=== PATIENT | male | born 1950 | race Caucasian/White ===

== ENCOUNTER → 2016-08-25 | Outpatient (CLI) | payer BC ==
[~2016-08-25] MED LIST: ASPI1TAB PO; LISI40TAB PO; METO25TAB PO; SIMV40TA2 PO; SYNT50TA PO; chlorthalidone PO
[2016-08-25 09:39] LABS: BASO % 0.4 % (0.0-1.0); EOS # 0.2 K/mm3 (0.0-0.50); EOS % 1.7 % (0.0-3.0); LARGE UNSTAINED CELL # 0.1 K/mm3 (0.0-0.4); LARGE UNSTAINED CELL % 1.5 % (0.0-4.0); LYMPH % 32.9 % (24.0-44.0); MEAN CORPUSCULAR HEMOGLOBIN 30.6 pg (27.0-33.0); MEAN CORPUSCULAR HGB CONC 34.3 g/dl (32.0-36.5); MEAN CORPUSCULAR VOLUME 89.3 fl (80.0-96.0); MONO # 0.5 K/mm3 (0.0-0.8); MONO % 5.4 % (0.0-5.0); NEUTROPHILS # 5.1 K/mm3 (1.8-7.7); PLATELET COUNT, AUTOMATED 129 k/mm3 (150-450); RED CELL DISTRIBUTION WIDTH 13.4 % (11.5-14.5); WHITE BLOOD COUNT 8.8 K/mm3 (4.0-10.0)
[2016-08-25 09:53] LABS: ALBUMIN 3.8 GM/DL (3.2-5.2); ALBUMIN/GLOBULIN RATIO 1.36 (1.00-1.93); ALKALINE PHOSPHATASE 63 U/L (45-117); ALT/SGPT 33 U/L (12-78); ANION GAP 8 MEQ/L (8-16); AST/SGOT 23 U/L (15-37); BILIRUBIN,TOTAL 0.5 MG/DL (0.2-1.0); BLOOD UREA NITROGEN 17 MG/DL (7-18); CALCIUM LEVEL 8.6 MG/DL (8.8-10.2); CARBON DIOXIDE LEVEL 28 MEQ/L (21-32); CHLORIDE LEVEL 105 MEQ/L (98-107); CHOLESTEROL LEVEL 153 MG/DL (<200); CREATININE FOR GFR 0.94 MG/DL (0.70-1.30); FREE T4 0.96 NG/DL (0.76-1.46); GLOMERULAR FILTRATION RATE > 60.0 (>49); GLUCOSE, FASTING 117 MG/DL (80-110); SODIUM LEVEL 141 MEQ/L (136-145); TOTAL PROTEIN 6.6 GM/DL (6.4-8.2); TRIGLYCERIDES LEVEL 272 MG/DL (<150)
== END ==
LOC: M WUC 08:03
PROVIDERS: ATTEND Family Medicine
DX: E03.8 Other specified hypothyroidism (principal); I10 Essential (primary) hypertension; E11.9 Type 2 diabetes mellitus without complications; E78.5 Hyperlipidemia, unspecified

== ENCOUNTER → 2016-11-25 | Outpatient (CLI) | payer BC ==
[2016-11-25 12:45] LABS: ANION GAP 10 MEQ/L (8-16); BLOOD UREA NITROGEN 14 MG/DL (7-18); CALCIUM LEVEL 8.9 MG/DL (8.8-10.2); CARBON DIOXIDE LEVEL 25 MEQ/L (21-32); CHLORIDE LEVEL 106 MEQ/L (98-107); CREATININE FOR GFR 0.97 MG/DL (0.70-1.30); GLOMERULAR FILTRATION RATE > 60.0 (>49); GLUCOSE, FASTING 122 MG/DL (80-110); POTASSIUM SERUM 4.2 MEQ/L (3.5-5.1); SODIUM LEVEL 141 MEQ/L (136-145)
== END ==
LOC: M WUC 08:32
PROVIDERS: ATTEND Physician Assistant
DX: E11.9 Type 2 diabetes mellitus without complications (principal)

== ENCOUNTER → 2017-03-01 | Outpatient (CLI) | payer BC ==
[2017-03-01 13:40] LABS: BASO % 0.4 % (0.0-1.0); EOS # 0.2 10^3/uL (0.0-0.50); EOS % 1.8 % (0.0-3.0); IMMATURE GRANULOCYTE % 0.2 % (0-0); LYMPH # 2.2 10^3/uL (1.5-4.5); LYMPH % 27.2 % (24.0-44.0); MEAN CORPUSCULAR HEMOGLOBIN 30.6 pg (27.0-33.0); MEAN CORPUSCULAR HGB CONC 34.3 g/dl (32.0-36.5); MEAN CORPUSCULAR VOLUME 89.1 fl (80.0-96.0); MONO # 0.6 10^3/uL (0.0-0.8); MONO % 7.9 % (0.0-5.0); NEUTROPHILS # 5.1 10^3/uL (1.8-7.7); NEUTROPHILS % 62.5 % (36.0-66.0); PLATELET COUNT, AUTOMATED 122 10^3/uL (150-450); RED CELL DISTRIBUTION WIDTH 12.8 % (11.5-14.5); WHITE BLOOD COUNT 8.1 10^3/uL (4.0-10.0)
[2017-03-01 13:55] LABS: ALBUMIN 3.7 GM/DL (3.2-5.2); ALBUMIN/GLOBULIN RATIO 1.16 (1.00-1.93); ALKALINE PHOSPHATASE 70 U/L (45-117); ALT/SGPT 35 U/L (12-78); ANION GAP 7 MEQ/L (8-16); AST/SGOT 27 U/L (15-37); BILIRUBIN,TOTAL 0.6 MG/DL (0.2-1.0); BLOOD UREA NITROGEN 12 MG/DL (7-18); CALCIUM LEVEL 8.7 MG/DL (8.8-10.2); CARBON DIOXIDE LEVEL 29 MEQ/L (21-32); CHLORIDE LEVEL 104 MEQ/L (98-107); CHOLESTEROL LEVEL 146 MG/DL (<200); CREATININE FOR GFR 0.89 MG/DL (0.70-1.30); FREE T4 0.86 NG/DL (0.76-1.46); GLOMERULAR FILTRATION RATE > 60.0 (>49); GLUCOSE, FASTING 117 MG/DL (80-110); POTASSIUM SERUM 3.8 MEQ/L (3.5-5.1); SODIUM LEVEL 140 MEQ/L (136-145); TOTAL PROTEIN 6.9 GM/DL (6.4-8.2); TRIGLYCERIDES LEVEL 276 MG/DL (<150)
== END ==
LOC: M SMT 09:12
PROVIDERS: ATTEND Family Medicine
DX: E11.9 Type 2 diabetes mellitus without complications (principal); E78.5 Hyperlipidemia, unspecified; E03.8 Other specified hypothyroidism

== ENCOUNTER → 2017-06-26 | Outpatient (CLI) | payer BC ==
[2017-06-26 09:53] LABS: ANION GAP 6 MEQ/L (8-16); BLOOD UREA NITROGEN 13 MG/DL (7-18); CALCIUM LEVEL 8.5 MG/DL (8.8-10.2); CARBON DIOXIDE LEVEL 27 MEQ/L (21-32); CHLORIDE LEVEL 107 MEQ/L (98-107); CREATININE FOR GFR 0.81 MG/DL (0.70-1.30); GLOMERULAR FILTRATION RATE > 60.0 (>49); GLUCOSE, FASTING 118 MG/DL (70-100); POTASSIUM SERUM 4.1 MEQ/L (3.5-5.1); SODIUM LEVEL 140 MEQ/L (136-145)
[2017-06-26 10:59] LABS: ESTIMATED AVERAGE GLUCOSE 137 MG/DL (60-110); HEMOGLOBIN A1c 6.4 %
== END ==
LOC: M WUC 08:21
DX: E11.9 Type 2 diabetes mellitus without complications (principal)
CPT/HCPCS: 83036

== ENCOUNTER → 2017-07-03 | Outpatient (CLI) | payer BC | LOC: M WUC 11:54 | DX: R05 Cough (principal) | CPT/HCPCS: 71046 ==

== ENCOUNTER → 2017-12-06 | Outpatient (CLI) | payer BC ==
[2017-12-06 14:12] LABS: ALBUMIN 3.8 GM/DL (3.2-5.2); ALBUMIN/GLOBULIN RATIO 1.19 (1.00-1.93); ALKALINE PHOSPHATASE 62 U/L (45-117); ALT/SGPT 36 U/L (12-78); ANION GAP 8 MEQ/L (8-16); AST/SGOT 26 U/L (7-37); BILIRUBIN,TOTAL 0.4 MG/DL (0.2-1.0); BLOOD UREA NITROGEN 20 MG/DL (7-18); CALCIUM LEVEL 8.8 MG/DL (8.8-10.2); CARBON DIOXIDE LEVEL 26 MEQ/L (21-32); CHLORIDE LEVEL 107 MEQ/L (98-107); CHOLESTEROL LEVEL 141 MG/DL (<200); CHOLESTEROL RISK RATIO 4.862 (<5); CREATININE FOR GFR 0.98 MG/DL (0.70-1.30); FREE T4 0.94 NG/DL (0.76-1.46); GLOMERULAR FILTRATION RATE > 60.0 (>49); GLUCOSE, FASTING 117 MG/DL (70-100); HDL CHOLESTEROL 29 MG/DL (>40); LDL CHOLESTEROL 51.8 MG/DL (<100); NON-HDL-C 112 MG/DL; POTASSIUM SERUM 3.7 MEQ/L (3.5-5.1); SODIUM LEVEL 141 MEQ/L (136-145); TRIGLYCERIDES LEVEL 301 MG/DL (<150)
[2017-12-06 14:15] LABS: ESTIMATED AVERAGE GLUCOSE 146 MG/DL (60-110); HEMOGLOBIN A1c 6.7 %
[2017-12-06 14:28] LABS: MALB URINE SIEMENS 12.1 MG/L; MAU/CREAT RATIO 5.2 MCG/MG (0.0-30.0)
== END ==
LOC: M WUC 09:33
DX: E03.8 Other specified hypothyroidism (principal); E11.40 Type 2 diabetes mellitus with diabetic neuropathy, unspecified; E78.5 Hyperlipidemia, unspecified; I10 Essential (primary) hypertension
CPT/HCPCS: 84443

== ENCOUNTER → 2018-04-19 | Outpatient (CLI) | payer BC ==
[2018-04-19 14:25] LABS: ALBUMIN 4.1 GM/DL (3.2-5.2); ALBUMIN/GLOBULIN RATIO 1.37 (1.00-1.93); ALKALINE PHOSPHATASE 60 U/L (45-117); ALT/SGPT 35 U/L (12-78); ANION GAP 8 MEQ/L (8-16); AST/SGOT 23 U/L (7-37); BILIRUBIN,TOTAL 0.4 MG/DL (0.2-1.0); BLOOD UREA NITROGEN 18 MG/DL (7-18); CARBON DIOXIDE LEVEL 29 MEQ/L (21-32); CHLORIDE LEVEL 103 MEQ/L (98-107); CHOLESTEROL LEVEL 151 MG/DL (<200); CHOLESTEROL RISK RATIO 5.033 (<5); CREATININE FOR GFR 1.02 MG/DL (0.70-1.30); FREE T4 0.95 NG/DL (0.76-1.46); GLOMERULAR FILTRATION RATE > 60.0 (>49); GLUCOSE, FASTING 114 MG/DL (70-100); HDL CHOLESTEROL 30 MG/DL (>40); LDL CHOLESTEROL 72 MG/DL (<100); NON-HDL-C 121 MG/DL; SODIUM LEVEL 140 MEQ/L (136-145); TOTAL PROTEIN 7.1 GM/DL (6.4-8.2); TRIGLYCERIDES LEVEL 247 MG/DL (<150)
[2018-04-19 15:26] LABS: ESTIMATED AVERAGE GLUCOSE 137 MG/DL (60-110); HEMOGLOBIN A1c 6.4 %
[2018-04-19 15:29] LABS: MALB URINE SIEMENS 13.7 MG/L; MAU/CREAT RATIO 6.4 MCG/MG (0.0-30.0)
== END ==
LOC: M WUC 08:55
DX: E03.8 Other specified hypothyroidism (principal); E11.40 Type 2 diabetes mellitus with diabetic neuropathy, unspecified; E78.5 Hyperlipidemia, unspecified; I10 Essential (primary) hypertension
CPT/HCPCS: 84443

== ENCOUNTER → 2018-07-21 | Outpatient (CLI) | payer BC ==
[2018-07-21 18:09] LABS: ALBUMIN 3.9 GM/DL (3.2-5.2); ALT/SGPT 39 U/L (12-78); BILIRUBIN,TOTAL 0.6 MG/DL (0.2-1.0); BLOOD UREA NITROGEN 19 MG/DL (7-18); CALCIUM LEVEL 8.5 MG/DL (8.8-10.2); CARBON DIOXIDE LEVEL 26 MEQ/L (21-32); CHLORIDE LEVEL 104 MEQ/L (98-107); CREATININE FOR GFR 1.05 MG/DL (0.70-1.30); GLOMERULAR FILTRATION RATE > 60.0 (>49); GLUCOSE, FASTING 127 MG/DL (70-100); POTASSIUM SERUM 3.7 MEQ/L (3.5-5.1); SODIUM LEVEL 140 MEQ/L (136-145); TOTAL PROTEIN 6.9 GM/DL (6.4-8.2)
[2018-07-21 18:38] LABS: HEMOGLOBIN A1c 6.8 %
== END ==
LOC: M WUC 09:20
PROVIDERS: ATTEND Physician Assistant
DX: R73.01 Impaired fasting glucose (principal)

== ENCOUNTER → 2018-10-18 | Outpatient (CLI) | payer BC ==
[~2018-10-18] MED LIST changes: -ASPI1TAB PO; +ASPI81TA26 PO; +LISI40TA52 PO; -LISI40TAB PO; +METO1TAB63 PO; -METO25TAB PO
[2018-10-18 10:23] LABS: BASO # 0.1 10^3/uL (0.0-0.2); BASO % 0.7 % (0.0-1.0); EOS # 0.3 10^3/uL (0.0-0.50); HEMATOCRIT 42.3 % (42.0-52.0); HEMOGLOBIN 13.9 g/dl (13.5-17.5); LYMPH # 2.1 10^3/uL (1.5-4.5); LYMPH % 28.2 % (24.0-44.0); MEAN CORPUSCULAR HEMOGLOBIN 29.9 pg (27.0-33.0); MEAN CORPUSCULAR HGB CONC 32.9 g/dl (32.0-36.5); MONO # 0.7 10^3/uL (0.0-0.8); MONO % 8.8 % (0.0-5.0); NEUTROPHILS # 4.3 10^3/uL (1.8-7.7); PLATELET COUNT, AUTOMATED 131 10^3/uL (150-450); RED BLOOD COUNT 4.65 10^6/uL (4.30-6.10); WHITE BLOOD COUNT 7.4 10^3/uL (4.0-10.0)
[2018-10-18 10:37] LABS: HEMOGLOBIN A1c 6.3 %
[2018-10-18 10:57] LABS: ALT/SGPT 32 U/L (12-78); BILIRUBIN,TOTAL 0.4 MG/DL (0.2-1.0); BLOOD UREA NITROGEN 17 MG/DL (7-18); CALCIUM LEVEL 9.1 MG/DL (8.8-10.2); CARBON DIOXIDE LEVEL 29 MEQ/L (21-32); CHLORIDE LEVEL 107 MEQ/L (98-107); CHOLESTEROL LEVEL 142 MG/DL (<200); CHOLESTEROL RISK RATIO 4.733 (<5); CREATININE FOR GFR 0.93 MG/DL (0.70-1.30); FREE T4 0.96 NG/DL (0.76-1.46); GLOMERULAR FILTRATION RATE > 60.0 (>49); GLUCOSE, FASTING 113 MG/DL (70-100); HDL CHOLESTEROL 30 MG/DL (>40); LDL CHOLESTEROL 69 MG/DL (<100); NON-HDL-C 112 MG/DL; POTASSIUM SERUM 4.1 MEQ/L (3.5-5.1); SODIUM LEVEL 143 MEQ/L (136-145); TRIGLYCERIDES LEVEL 214 MG/DL (<150)
[2018-10-18 11:01] LABS: TOTAL 25(OH) VITAMIN D 24.1 NG/ML (30.0-100.0)
[2018-10-18 11:05] LABS: MAU/CREAT RATIO 7.6 MCG/MG (0.0-30.0)
== END ==
LOC: M WUC 08:14
PROVIDERS: ATTEND Family Medicine
DX: Z12.5 Encounter for screening for malignant neoplasm of prostate (principal); E78.5 Hyperlipidemia, unspecified; E11.40 Type 2 diabetes mellitus with diabetic neuropathy, unspecified; E03.8 Other specified hypothyroidism
CPT/HCPCS: 36415; 80053; 80061; 82043; 82306; 83036; 84439; 84443; 85025; G0103

== ENCOUNTER → 2019-01-25 | Outpatient (CLI) | payer BC ==
[2019-01-25 10:19] LABS: BLOOD UREA NITROGEN 20 MG/DL (7-18); CALCIUM LEVEL 9.4 MG/DL (8.8-10.2); CARBON DIOXIDE LEVEL 29 MEQ/L (21-32); CHLORIDE LEVEL 105 MEQ/L (98-107); GLOMERULAR FILTRATION RATE > 60.0 (>49); GLUCOSE, FASTING 105 MG/DL (70-100); POTASSIUM SERUM 4.2 MEQ/L (3.5-5.1); SODIUM LEVEL 140 MEQ/L (136-145)
[2019-01-25 10:28] LABS: HEMOGLOBIN A1c 6.4 %
== END ==
LOC: M WUC 08:08
PROVIDERS: ATTEND Physician Assistant
DX: E11.40 Type 2 diabetes mellitus with diabetic neuropathy, unspecified (principal)

== ENCOUNTER → 2019-04-25 | Outpatient (CLI) | payer BC ==
[~2019-04-25] MED LIST changes: -SIMV40TA2 PO; +SIMV40TA20 PO
[2019-04-25 10:29] LABS: BASO % 0.3 % (0.0-1.0); EOS # 0.4 10^3/uL (0.0-0.5); EOS % 5.1 % (0.0-3.0); HEMATOCRIT 43.9 % (42.0-52.0); HEMOGLOBIN 14.2 g/dl (13.5-17.5); LYMPH # 2.2 10^3/uL (1.5-5.0); MEAN CORPUSCULAR HEMOGLOBIN 29.8 pg (27.0-33.0); MEAN CORPUSCULAR HGB CONC 32.3 g/dl (32.0-36.5); MEAN CORPUSCULAR VOLUME 92.2 fl (80.0-96.0); MONO # 0.7 10^3/uL (0.0-0.8); MONO % 8.6 % (0.0-5.0); NEUTROPHILS # 5.3 10^3/uL (1.5-8.5); NEUTROPHILS % 60.7 % (36.0-66.0); PLATELET COUNT, AUTOMATED 127 10^3/uL (150-450); RED BLOOD COUNT 4.76 10^6/uL (4.30-6.10); WHITE BLOOD COUNT 8.7 10^3/uL (4.0-10.0)
[2019-04-25 10:59] LABS: HEMOGLOBIN A1c 6.5 %
[2019-04-25 11:05] LABS: CHOLESTEROL RISK RATIO 4.484 (<5); FREE T4 0.95 NG/DL (0.76-1.46); THYROID STIMULATING HORMONE 2.17 uIU/ML (0.358-3.740)
== END ==
LOC: M WUC 08:06
PROVIDERS: ATTEND Family Medicine
DX: E11.40 Type 2 diabetes mellitus with diabetic neuropathy, unspecified (principal); E78.5 Hyperlipidemia, unspecified

== ENCOUNTER → 2019-07-25 | Outpatient (CLI) | payer BC ==
[2019-07-25 11:25] LABS: ALBUMIN 3.8 GM/DL (3.2-5.2); ALT/SGPT 29 U/L (12-78); BILIRUBIN,TOTAL 0.3 MG/DL (0.2-1.0); BLOOD UREA NITROGEN 18 MG/DL (7-18); CALCIUM LEVEL 8.9 MG/DL (8.8-10.2); CARBON DIOXIDE LEVEL 31 MEQ/L (21-32); CHLORIDE LEVEL 105 MEQ/L (98-107); CREATININE FOR GFR 0.93 MG/DL (0.70-1.30); GLOMERULAR FILTRATION RATE > 60.0 (>49); GLUCOSE, FASTING 117 MG/DL (70-100); POTASSIUM SERUM 4.3 MEQ/L (3.5-5.1); SODIUM LEVEL 141 MEQ/L (136-145); TOTAL PROTEIN 7.1 GM/DL (6.4-8.2)
[2019-07-25 11:52] LABS: HEMOGLOBIN A1c 6.6 %
== END ==
LOC: M WUC 08:11
PROVIDERS: ATTEND Physician Assistant
DX: E11.40 Type 2 diabetes mellitus with diabetic neuropathy, unspecified (principal)

== ENCOUNTER → 2019-08-05 | Outpatient (CLI) | payer BC ==
--- NOTE | 2019-08-05 11:38 | REP ---
Chest x-ray: Two views. History: Cough. Comparison chest x-ray: July 03, 2017. Findings: The lungs are symmetrically aerated and clear. Pleural angles are sharp. Heart is not enlarged. There are degenerative disc changes in the thoracic spine. A bipolar pacemaker is seen in the right heart via the left side. Pulmonary vasculature is not increased. Impression: Pacemaker in place. Otherwise no acute disease. Electronically Signed by Brent Bautista MD 08/05/2019 11:29 A
== END ==
LOC: M WUC 10:40
PROVIDERS: ATTEND Family Medicine
DX: Z95.0 Presence of cardiac pacemaker (principal); R05 Cough

== ENCOUNTER → 2019-09-19 | Outpatient (CLI) | payer BC | LOC: M LABSMTC 12:57 | PROVIDERS: ATTEND Family Medicine | DX: Z11.59 Encounter for screening for other viral diseases (principal); Z20.828 Contact with and (suspected) exposure to other viral communicable diseases ==

== ENCOUNTER → 2019-11-05 | Outpatient (CLI) | payer BC ==
[2019-11-05 14:23] LABS: ALBUMIN 3.4 GM/DL (3.2-5.2); ALT/SGPT 21 U/L (12-78); BILIRUBIN,TOTAL 0.4 MG/DL (0.2-1.0); BLOOD UREA NITROGEN 13 MG/DL (7-18); CARBON DIOXIDE LEVEL 27 MEQ/L (21-32); CHLORIDE LEVEL 104 MEQ/L (98-107); CHOLESTEROL LEVEL 149 MG/DL (<200); CHOLESTEROL RISK RATIO 4.515 (<5); FREE T4 1.15 NG/DL (0.76-1.46); GLOMERULAR FILTRATION RATE > 60.0 (>49); GLUCOSE, FASTING 109 MG/DL (70-100); HDL CHOLESTEROL 33 MG/DL (>40); LDL CHOLESTEROL 86 MG/DL (<100); NON-HDL-C 116 MG/DL; POTASSIUM SERUM 4.2 MEQ/L (3.5-5.1); SODIUM LEVEL 138 MEQ/L (136-145); TRIGLYCERIDES LEVEL 151 MG/DL (<150)
[2019-11-05 14:58] LABS: HEMOGLOBIN A1c 6.6 %
[2019-11-07 01:11] LABS: PSA TOTAL 2.1 ng/mL (0.0-4.0)
== END ==
LOC: M WUC 09:35
PROVIDERS: ATTEND Family Medicine
DX: E11.40 Type 2 diabetes mellitus with diabetic neuropathy, unspecified (principal); E78.5 Hyperlipidemia, unspecified; E03.8 Other specified hypothyroidism; Z12.5 Encounter for screening for malignant neoplasm of prostate

== ENCOUNTER → 2019-11-19 | Outpatient (CLI) | payer BC ==
[~2019-11-19] MED LIST changes: +ALPR0.5T3 PO; +CHLO125TA PO; +LISI40TA PO; +MAPA500C PO; +METO25TA4 PO; +NITR0.4S14 SL; +SYNT75TA PO
--- NOTE | 2019-11-19 14:38 | PFTRPT ---
Height: 70.00 Inches Weight: 230.00 Lbs BSA: 2.22 Diagnosis: R91.8 DATE OF PROCEDURE: 11/19/2019 ORDERED BY: Justin Shearer MD Spirometry: Pre and post bronchodilator study of excellent technical quality. Forced vital capacity normal. FEV1 in proportion. Obstructive index is, therefore, normal. Flow Volume Loop: Expiratory limb of the flow volume loop is normal. No significant bronchodilator response identified. Lung Volumes: Total lung capacity normal. Residual volume is in proportion. Diffusing Capacity: Diffusing capacity, although mildly reduced, is appropriate for alveolar volume. Hemoglobin: Hemoglobin acceptable at 13. Airway Mechanics: Airway resistance and conductance are normal. IMPRESSION: Minimal reduction in the absolute diffusing capacity. Please correlate clinically. MTDD
== END ==
LOC: M CARPUL 13:49
PROVIDERS: ATTEND Internal Medicine Pulmonary Disease
DX: R91.8 Other nonspecific abnormal finding of lung field (principal)

== ENCOUNTER → 2019-11-24 | Outpatient (CLI) | payer BC | LOC: M LABSMTC 11:11 | PROVIDERS: ATTEND Anesthesiology | DX: Z03.818 Encounter for observation for suspected exposure to other biological agents ruled out (principal) | CPT/HCPCS: C9803; U0003 ==

== ENCOUNTER 2019-11-27 11:55 | Day surgery (SDC) | payer BC ==
[~2019-11-27] VITALS: Ht 180.3 cm; Wt 103.0 kg
[~2019-11-27 11:55] MED LIST changes: -ALPR0.5T3 PO; -CHLO125TA PO; -MAPA500C PO; -NITR0.4S14 SL; +NS 1,000 ML IV ONE
[2019-11-27] MEDS ORDERED: LIDOCAINE 2% 100MG/5ML SDV (FOR ANES.) As Ordered ONE (14:19)
[2019-11-27] MEDS ORDERED: propofoL 500 MG/50 ML VIAL As Ordered ONE (14:19)
--- NOTE | 2019-11-27 15:02 | ROOR ---
Patient Name: Lauro Pino Procedure Date: 11/27/2019 1:28 PM Date of : 1950 Age: 69 Room: [facility] Gender: Male Note Status: Finalized Procedure: Colonoscopy Indications: Abnormal CT of the GI tract, Change in bowel habits, Change in stool caliber Providers: Augusto Madden MD Referring MD: Blanka KING DO Requesting Provider: Medicines: Monitored Anesthesia Care Complications: No immediate complications. Procedure: Pre-Anesthesia Assessment: - Prior to the procedure, a History and Physical was performed, and patient medications and allergies were reviewed. The patient is competent. The risks and benefits of the procedure and the sedation options and risks were discussed with the patient. All questions were answered and informed consent was obtained. Patient identification and proposed procedure were verified by the physician and the nurse in the endoscopy suite. Mental Status Examination: alert and oriented. Airway Examination: normal oropharyngeal airway and neck mobility. Respiratory Examination: clear to auscultation. CV Examination: normal. Prophylactic Antibiotics: The patient does not require prophylactic antibiotics. Prior Anticoagulants: The patient has taken no previous anticoagulant or antiplatelet agents except for aspirin. ASA Grade Assessment: III - A patient with severe systemic disease. After reviewing the risks and benefits, the patient was deemed in satisfactory condition to undergo the procedure. The anesthesia plan was to use monitored anesthesia care (MAC). Immediately prior to administration of medications, the patient was re-assessed for adequacy to receive sedatives. The heart rate, respiratory rate, oxygen saturations, blood pressure, adequacy of pulmonary ventilation, and response to care were monitored throughout the procedure. The physical status of the patient was re-assessed after the procedure. The Colonoscope was introduced through the anus and advanced to the cecum, identified by appendiceal orifice and ileocecal valve. The patient tolerated the procedure. The colonoscopy was somewhat difficult due to multiple diverticula in the colon and a partially obstructing mass. The patient tolerated the procedure well. The quality of the bowel preparation was adequate. Findings: Hemorrhoids were found on perianal exam. Multiple small and large-mouthed diverticula were found in the sigmoid colon, descending colon, transverse colon, hepatic flexure and ascending colon. There was narrowing of the colon in association with the diverticular opening. Leeann-diverticular erythema was seen. There was evidence of an impacted diverticulum. A fungating and infiltrative partially obstructing large mass was found in the recto-sigmoid colon. The mass was partially circumferential (involving two-thirds of the lumen circumference). The mass measured four cm in length. No bleeding was present. This was biopsied with a cold forceps for histology. Area was successfully injected with 4 mL Natalya ink for tattooing. No additional abnormalities were found on retroflexion. Impression: - Hemorrhoids found on perianal exam. - Severe diverticulosis in the sigmoid colon, in the descending colon, in the transverse colon, at the hepatic flexure and in the ascending colon. There was narrowing of the colon in association with the diverticular opening. Leeann-diverticular erythema was seen. There was evidence of an impacted diverticulum. - Likely malignant partially obstructing tumor in the recto-sigmoid colon. Biopsied. Injected. Recommendation: - Discharge patient to home (ambulatory). - Return to my office in 1 week. Augusto Madden MD Augusto Madden MD 11/27/2019 3:02:09 PM Electronically signed by Augusto Madden MD Number of Addenda: 0 Note Initiated On: 11/27/2019 1:28 PM Estimated Blood Loss: Estimated blood loss was minimal.
[2019-11-27 15:30] VITALS: BP 178/91
[2019-12-04] MEDS ORDERED: ALPR0.5T3 PO (14:23)
[2019-12-04] MEDS ORDERED: CHLO125TA PO (14:23)
[2019-12-04] MEDS ORDERED: NITR0.4S14 SL (14:35)
[2019-12-04] MEDS ORDERED: MAPA500C PO (14:35)
[2020-01-15] MEDS ORDERED: PROC10TA4 PO (11:41)
[2020-01-22] MEDS ORDERED: ZOFR8TAB24 PO (08:44)
== END 2019-11-27 15:40 | disposition home or self-care (01) ==
LOC: M OPP 11:55
PROVIDERS: ATTEND Surgery
DX: K56.690 Other partial intestinal obstruction (principal); C18.7 Malignant neoplasm of sigmoid colon; K64.9 Unspecified hemorrhoids; R19.4 Change in bowel habit; R19.5 Other fecal abnormalities; K57.30 Diverticulosis of large intestine without perforation or abscess without bleeding; I10 Essential (primary) hypertension; R93.3 Abnormal findings on diagnostic imaging of other parts of digestive tract; E11.9 Type 2 diabetes mellitus without complications; Z79.82 Long term (current) use of aspirin; Z79.899 Other long term (current) drug therapy; Z95.5 Presence of coronary angioplasty implant and graft; Z95.0 Presence of cardiac pacemaker

== ENCOUNTER → 2019-11-28 | Outpatient (CLI) | payer BC ==
[~2019-11-28] MED LIST changes: +ALPR0.5T3 PO; +CHLO125TA PO; +MAPA500C PO; +NITR0.4S14 SL; -NS 1,000 ML IV ONE; +PROC10TA4 PO; +ZOFR8TAB24 PO
[2019-11-28 17:06] LABS: PLATELET COUNT, AUTOMATED 171 10^3/uL (150-450)
[2019-11-28 17:20] LABS: INR 1.02; PROTHROMBIN TIME 13.1 SECONDS (11.8-14.0)
[2019-11-28 17:21] LABS: PARTIAL THROMBOPLASTIN TIME 36.5 SECONDS (25.0-38.4)
== END ==
LOC: M WUC 12:28
PROVIDERS: ATTEND Internal Medicine Pulmonary Disease
DX: R91.1 Solitary pulmonary nodule (principal)

== ENCOUNTER → 2019-12-05 | Outpatient (REF) | payer BC ==
[2019-12-05 16:42] LABS: BASO # 0.1 10^3/uL (0.0-0.2); BASO % 0.4 % (0.0-1.0); EOS # 0.4 10^3/uL (0.0-0.5); EOS % 3.3 % (0.0-3.0); HEMATOCRIT 37.4 % (42.0-52.0); HEMOGLOBIN 11.8 g/dl (13.5-17.5); LYMPH # 1.7 10^3/uL (1.5-5.0); MEAN CORPUSCULAR HEMOGLOBIN 28.4 pg (27.0-33.0); MEAN CORPUSCULAR HGB CONC 31.6 g/dl (32.0-36.5); MEAN CORPUSCULAR VOLUME 90.1 fl (80.0-96.0); MONO % 8.6 % (0.0-5.0); NEUTROPHILS # 8.1 10^3/uL (1.5-8.5); NEUTROPHILS % 72.2 % (36.0-66.0); PLATELET COUNT, AUTOMATED 185 10^3/uL (150-450); RED BLOOD COUNT 4.15 10^6/uL (4.30-6.10); WHITE BLOOD COUNT 11.2 10^3/uL (4.0-10.0)
[2019-12-05 17:01] LABS: ALBUMIN 3.5 GM/DL (3.2-5.2); ALT/SGPT 20 U/L (12-78); BILIRUBIN,TOTAL 0.3 MG/DL (0.2-1.0); BLOOD UREA NITROGEN 13 MG/DL (7-18); CALCIUM LEVEL 8.8 MG/DL (8.8-10.2); CARBON DIOXIDE LEVEL 30 MEQ/L (21-32); CHLORIDE LEVEL 104 MEQ/L (98-107); CREATININE FOR GFR 0.87 MG/DL (0.70-1.30); GLOMERULAR FILTRATION RATE > 60.0 (>49); GLUCOSE, FASTING 131 MG/DL (70-100); SODIUM LEVEL 139 MEQ/L (136-145)
== END ==
LOC: M WUC 15:45
PROVIDERS: ATTEND Physician Assistant
DX: C18.6 Malignant neoplasm of descending colon (principal)

== ENCOUNTER → 2019-12-07 | Outpatient (CLI) | payer BC | LOC: M LABSMTC 10:28 | PROVIDERS: ATTEND Anesthesiology | DX: Z01.818 Encounter for other preprocedural examination (principal); Z11.59 Encounter for screening for other viral diseases | CPT/HCPCS: C9803; U0003 ==

== ENCOUNTER → 2019-12-09 | Outpatient (CLI) | payer MEDICARE, BC ==
[~2019-12-09] MED LIST changes: +LIDOCAINE 1% MDV 20ML VIAL As Ordered ONE
--- NOTE | 2019-12-09 11:23 | REP ---
CHEST X-RAY: Single view. HISTORY: The patient is immediately status post CT guided needle biopsy for left lower lobe lung nodule. Comparison chest x-ray August 05, 2019. FINDINGS: There is an ill-defined nodular opacity in the left base along the left heart border. There is a small left apical pneumothorax, approximately 5% or less. Followup chest x-ray will be obtained 2 hours. Pacemaker is seen. No other findings. IMPRESSION: Small left apical pneumothorax. Followup chest x-ray will be obtained in 2 hours. Electronically Signed by Brent Bautista MD 12/09/2019 04:17 P
[2019-12-09 13:00] VITALS: BP 155/76
--- NOTE | 2019-12-09 13:33 | REP ---
Chest x-ray: Single PA view. 01:13 p.m. film. History: Reevaluate post biopsy small pneumothorax left-sided. Comparison study 11:18 a.m. film on this same date. Findings: There is a small left apical pneumothorax unchanged in the interval since the 11:18 a.m. film. The patient remains asymptomatic. Lungs are otherwise clear. Pleural angles are sharp. Pacemaker is again noted. Impression: Stable small left apical pneumothorax. The patient will be released. Electronically Signed by Brent Bautista MD 12/09/2019 01:24 P
--- NOTE | 2019-12-09 18:41 | REP ---
CT-guided left lobe lung biopsy The procedure is performed by ARMINDA Conroy, under the direct supervision of Dr. Bautista. The patient has a history of a spiculated 16 x 15 x 14 mm left lower lobe lung mass on a a CT dated 11/21/2019. The risks and benefits of the procedure were explained to the patient and informed consent was obtained both orally and written. Directly prior to the start of the procedure, a formal timeout was done in the exam room. The left lobe lung mass was localized using CT guidance. Skin was prepped and draped in the usual sterile fashion. 6 ml of 1% lidocaine 10 mg/ml was used as a local anesthetic. Using CT guidance a 19/20 gauge coaxial needle biopsy system was inserted and advanced into the nodule. 8 core biopsy samples were obtained and sent to the lab. CT images obtained directly after the biopsy show evidence of a small pneumothorax. This was followed with serial chest x-rays and after the appropriate amount of monitored convalescence the patient was discharged from the department. Reviewed by ARMINDA Juarez 12/09/2019 04:59 P Electronically Signed by Brent Bautista MD 12/09/2019 06:33 P
== END ==
LOC: M IRPRO 10:00
PROVIDERS: ATTEND Internal Medicine Pulmonary Disease
DX: R91.1 Solitary pulmonary nodule (principal)

== ENCOUNTER 2019-12-12 06:14 | Inpatient (IN) | payer MEDICARE, BC ==
[~2019-12-12] VITALS: Ht 177.8 cm; Wt 102.5 kg
[~2019-12-12 06:14] MED LIST changes: +ALVIMOPAN 12 MG CAPSULE (ENTEREG) PO ONE; +HEPARIN SOD (PORCINE) 5000UNITS/ML 1ML VIAL/SYRINGE SQ ONE; -LIDOCAINE 1% MDV 20ML VIAL As Ordered ONE; +LIDOCAINE 1% MDV 20ML VIAL SQ PRN; +LR 1,000 ML IV ONE; -PROC10TA4 PO; -ZOFR8TAB24 PO; +cefoTEtan DISODIUM 2 GM in D5W MINI-BAG PLUS 50 ML IV ONE; +metroNIDAZOLE 500 MG in IV 1 EA IV ONE
[2019-12-12 06:51] VITALS: BP 136/76
[2019-12-12] MEDS ORDERED: LIDOCAINE 1% SDV 30ML VIAL As Ordered ONE (07:10)
[2019-12-12] MEDS ORDERED: BUPIVACAINE HCL 0.25% 30ML VIAL As Ordered ONE (07:10)
[2019-12-12] MEDS ORDERED: propofoL 200 MG/20 ML VIAL As Ordered ONE (07:12)
[2019-12-12] MEDS ORDERED: KETOROLAC 60MG 2ML VIAL As Ordered ONE (07:12)
[2019-12-12] MEDS ORDERED: SUGAMMADEX SODIUM 500 MG/5 ML VIAL (BRIDION) As Ordered ONE (07:12)
[2019-12-12] MEDS ORDERED: BUPIVACAINE LIPOSOME/PF 1.3% 20ML VIAL (13.3MG/ML)(EXPAREL)(C9290 PER1MG) As Ordered ONE (07:12)
[2019-12-12] MEDS ORDERED: dexameTHASONE 4 MG/ML 1ML VIAL (J1100 PER 1MG) As Ordered ONE (07:12)
[2019-12-12] MEDS ORDERED: ROCURONIUM BROMIDE 50 MG/5 ML VIAL As Ordered ONE ×3 (07:12→11:20)
[2019-12-12] MEDS ORDERED: ONDANSETRON 4MG/2ML VIAL As Ordered ONE (07:12)
[2019-12-12] MEDS ORDERED: LIDOCAINE 2% 100MG/5ML SDV (FOR ANES.) As Ordered ONE (07:12)
[2019-12-12] MEDS ORDERED: HYDROmorphone HCL 2 MG/ML 1ML VIAL (J1170) As Ordered ONE (07:12)
[2019-12-12] MEDS ORDERED: ACETAMINOPHEN 1000MG 100ML IV BTL (OFIRMEV) (J0131 PER 10MG) As Ordered ONE (07:12)
[2019-12-12] MEDS ORDERED: fentaNYL 100 MCG/2 ML INJECTION (J3010) As Ordered ONE (07:13)
[2019-12-12] MEDS ORDERED: MIDAZOLAM INJ 2MG/2ML VIAL (J2250 PER 1MG) As Ordered ONE (07:13)
[2019-12-12] MEDS ORDERED: BUPIVACAINE HCL 0.25% 10ML VIAL As Ordered ONE (07:13)
[2019-12-12] MEDS ORDERED: PHENYLephrine HCL 500 MCG/5 ML (100MCG/ML) SYRINGE (J2370) As Ordered ONE (11:52)
[2019-12-13] MEDS ORDERED: IPRATROPIUM 0.5MG/ALBUTEROL 2.5MG INH SOL UD 3ML (DUONEB) ONE (09:00)
[2019-12-14] MEDS ORDERED: PERCOCET 5MG/325MG TAB ONE (04:31)
[2019-12-14] MEDS ORDERED: ACETAMINOPHEN TAB 650MG DOSE (2X325MG) ONE ×3 (04:35→10:08)
[2019-12-14] MEDS ORDERED: ENOXAPARIN 40MG/0.4ML SYRINGE (J1650 PER 10MG) ONE (08:57)
[2019-12-14] MEDS ORDERED: ACETAMINOPHEN TAB 650MG DOSE (2X325MG) As Ordered ONE ×3 (08:57→22:21)
[2019-12-14] MEDS ORDERED: metroNIDAZOLE/NACL 500MG(5MG/ML) 100ML BAG (S0030) ONE (08:57)
[2019-12-14] MEDS ORDERED: lisinopriL 40 MG TAB As Ordered ONE ×2 (08:57→22:08)
[2019-12-14] MEDS ORDERED: metroNIDAZOLE/NACL 500MG(5MG/ML) 100ML BAG (S0030) As Ordered ONE ×2 (08:57→17:58)
[2019-12-14] MEDS ORDERED: APPROPRIATE DILUENT As Ordered ONE ×4 (08:57→22:09)
[2019-12-14] MEDS ORDERED: METOPROLOL TART 25 MG TABLET ONE ×2 (08:57→10:08)
[2019-12-14] MEDS ORDERED: lisinopriL 40 MG TAB ONE (08:57)
[2019-12-14] MEDS ORDERED: ENOXAPARIN 40MG/0.4ML SYRINGE (J1650 PER 10MG) As Ordered ONE (08:58)
[2019-12-14] MEDS ORDERED: METOPROLOL TART 25 MG TABLET As Ordered ONE ×2 (08:58→22:08)
[2019-12-14] MEDS ORDERED: IPRATROPIUM 0.5MG/ALBUTEROL 2.5MG INH SOL UD 3ML (DUONEB) ONE (09:00)
[2019-12-14] MEDS ORDERED: SIMVASTATIN 40 MG TAB ONE (10:08)
[2019-12-14] MEDS ORDERED: CIPROFLOXACIN/D5W 400 MG/200 ML BAG (J0744) ONE (10:08)
[2019-12-14] MEDS ORDERED: CIPROFLOXACIN/D5W 400 MG/200 ML BAG (J0744) As Ordered ONE ×2 (12:01→22:09)
[2019-12-14] MEDS ORDERED: MORPHINE 2 MG/ML 1ML VIAL (J2270) ONE (12:16)
[2019-12-14] MEDS ORDERED: SIMVASTATIN 40 MG TAB As Ordered ONE (22:09)
[2019-12-15] MEDS ORDERED: APPROPRIATE DILUENT As Ordered ONE ×5 (00:06→21:28)
[2019-12-15] MEDS ORDERED: metroNIDAZOLE/NACL 500MG(5MG/ML) 100ML BAG (S0030) As Ordered ONE ×3 (00:06→16:50)
[2019-12-15] MEDS ORDERED: ACETAMINOPHEN TAB 650MG DOSE (2X325MG) As Ordered ONE ×3 (05:21→21:27)
[2019-12-15] MEDS ORDERED: lisinopriL 40 MG TAB As Ordered ONE ×2 (09:50→21:28)
[2019-12-15] MEDS ORDERED: METOPROLOL TART 25 MG TABLET As Ordered ONE ×2 (09:50→21:28)
[2019-12-15] MEDS ORDERED: ENOXAPARIN 40MG/0.4ML SYRINGE (J1650 PER 10MG) As Ordered ONE (09:50)
[2019-12-15] MEDS ORDERED: CIPROFLOXACIN/D5W 400 MG/200 ML BAG (J0744) As Ordered ONE ×2 (11:15→21:28)
[2019-12-15] MEDS ORDERED: SIMVASTATIN 40 MG TAB As Ordered ONE (21:28)
[2019-12-16] MEDS ORDERED: metroNIDAZOLE/NACL 500MG(5MG/ML) 100ML BAG (S0030) As Ordered ONE ×2 (00:48→09:28)
[2019-12-16] MEDS ORDERED: APPROPRIATE DILUENT As Ordered ONE ×2 (00:48→09:28)
[2019-12-16] MEDS ORDERED: lisinopriL 40 MG TAB As Ordered ONE (09:28)
[2019-12-16] MEDS ORDERED: ENOXAPARIN 40MG/0.4ML SYRINGE (J1650 PER 10MG) As Ordered ONE (09:28)
[2019-12-16] MEDS ORDERED: METOPROLOL TART 25 MG TABLET As Ordered ONE (09:28)
[2020-01-15] MEDS ORDERED: PROC10TA4 PO (11:41)
[2020-01-22] MEDS ORDERED: ZOFR8TAB24 PO (08:44)
[2020-01-22 11:32] LABS: HEMATOCRIT 34.5 % (42.0-52.0); HEMOGLOBIN 10.9 g/dl (13.5-17.5); MEAN CORPUSCULAR HEMOGLOBIN 28.2 pg (27.0-33.0); MEAN CORPUSCULAR HGB CONC 31.6 g/dl (32.0-36.5); MEAN CORPUSCULAR VOLUME 89.1 fl (80.0-96.0); PLATELET COUNT, AUTOMATED 177 10^3/uL (150-450); RED BLOOD COUNT 3.87 10^6/uL (4.30-6.10); WHITE BLOOD COUNT 15.9 10^3/uL (4.0-10.0)
[2020-01-22 14:20] LABS: HEMATOCRIT 32.1 % (42.0-52.0); HEMOGLOBIN 10.4 g/dl (13.5-17.5); MEAN CORPUSCULAR HEMOGLOBIN 28.4 pg (27.0-33.0); MEAN CORPUSCULAR HGB CONC 32.4 g/dl (32.0-36.5); MEAN CORPUSCULAR VOLUME 87.7 fl (80.0-96.0); PLATELET COUNT, AUTOMATED 185 10^3/uL (150-450); RED BLOOD COUNT 3.66 10^6/uL (4.30-6.10)
[2020-01-28 11:57] LABS: BLOOD UREA NITROGEN 7 MG/DL (7-18); CALCIUM LEVEL 8.3 MG/DL (8.8-10.2); CARBON DIOXIDE LEVEL 27 mmol/L (20-29); CHLORIDE LEVEL 104 MEQ/L (98-107); CREATININE FOR GFR 0.89 MG/DL (0.70-1.30); GLOMERULAR FILTRATION RATE > 60.0 (>49); GLUCOSE, FASTING 139 MG/DL (70-100); POTASSIUM SERUM 3.2 MEQ/L (3.5-5.1); SODIUM LEVEL 140 MEQ/L (136-145)
[2020-01-28 13:48] LABS: BLOOD UREA NITROGEN 7 MG/DL (7-18); CALCIUM LEVEL 8.1 MG/DL (8.8-10.2); CARBON DIOXIDE LEVEL 29 MEQ/L (21-32); CHLORIDE LEVEL 106 MEQ/L (98-107); CREATININE FOR GFR 0.74 MG/DL (0.70-1.30); GLOMERULAR FILTRATION RATE > 60.0 (>49); GLUCOSE, FASTING 137 MG/DL (70-100); POTASSIUM SERUM 3.2 MEQ/L (3.5-5.1); SODIUM LEVEL 143 MEQ/L (136-145)
--- NOTE | 2020-02-04 12:28 | ROOPDOC ---
[facility] Report Of Operation Report of Operation DATE OF PROCEDURE: 12/12/19 PREPROCEDURE DIAGNOSES: Rectosigmoid Colon Cancer. POSTPROCEDURE DIAGNOSES: Rectosigmoid colon cancer with full thickness perforation. PROCEDURE: Robotic Assisted Laparoscopic Low Anterior Resection., Intraoperative cystoscopy and injection of ICG by Dr. Adame SURGEON: Augusto Madden MD ORDER PROCESSOR: DO Marlene Artis, GLOST TILE SHADER Miss Coughlin assisted me with the initial placement of ports, management of the tower, arms and instruments as well as retraction intra-abdominally while I was at the surgeon's console. Dr. De Leon came in and assisted me with performance of flexible sigmoidoscopy, transanal anastomosis, extraction of specimen and closure of the ports and an incisions ANESTHESIA: General anesthesia with placement of a transversus abdominis plane block using Exparel and Marcaine. ESTIMATED BLOOD LOSS: Approximately 100 mL. COMPLICATIONS: none. REMARKS: Patient is a 69-year-old male complaining of change in his bowel habits, pencil thin stool, found to have a near obstructing mass at the rectosig moid junction on colonoscopy. During his surgery he was noted to have full- thickness perforation of the antimesenteric wall of the colon where the cancer is located in this is adhered to the pelvic sidewall. PROCEDURE NOTE: I asked Dr. Adame to perform an intraoperative cystoscopy and injection of ICG on both ureteral openings to aid me in identification of the ureters during dissection. DESCRIPTION OF PROCEDURE: Patient received 2 g of Cefotetan IV and 500 mg metronidazole IV for wound prophylaxis the see for T10 was redosed at 4 hours during surgery. As part of ERAS he got 12 mg of Entereg. He received 5000 units of heparin subcutaneous for DVT prophylaxis. The patient was brought to the operating room and placed on the operating table. Sequential compression devices and ELEONORA stockings placed for mechanical DVT prophylaxis during surgery. Gen. endotracheal anesthesia started. He was placed in lithotomy position on Jaleel stirrups . A Conroy catheter placed for urine output monitoring. She was then prepped and draped in usual sterile fashion.Time-outs were performed using both preinduction and pre-incision safety checklists to verify correct patient, procedure, site, and additional critical information prior to beginning the procedure. A Veress needle was introduced into the abdominal cavity via the right upper quadrant subcostal area confirmed with saline drop technique and pneumoperitoneum was achieved to a pressure of 15 mmHg. A 5 mm optical trocar was inserted under direct vision of laparoscope using the same incision. The area and bowels underneath the insertion site was inspected for injury and none was found. He was then placed on a 20 Trendelenburg position with her left side tilted upwards to retract bowels away from her pelvis at about 8. I placed in an 8 mm robotic trochars through the space just above the umbilicus. Using a laparoscopic grasper the omental adhesions were taken down to allow for proper placement of the robotic trochars. The robotic trochars were placed along the line tracing obliquely from the anterior superior iliac spine on the right side to the left subcostal area. This includes three 8 mm ports and a 12 mm stapler port roughly 2 cm medial to the level of the anterior superior iliac spine on the right lower quadrant area. The robotic tower was then maneuvered bedside over the patient's left side and the trochars duct to the robotic arms. We used a 30 robotic laparoscopic for the procedure, a tip of grasper, a forced bipolar grasper connected to a bipolar cautery cord and robotic scissors connected to a monopolar cautery which got switched now and then to the vessel sealer. The omentum, small bowels were retracted away from the pelvis and left side of the abdomen exposing the course of the descending colon and sigmoid colon. I then unscrubbed, took position at the surgeon's console to begin the dissection. On further visual exploration, part of the distal sigmoid is adhered to the anterolateral lower abdominal wall and pelvis with the bowel looking quite bulky, with an appearance similar to chronic diverticulitis. This extends tot he middle of the pelvis and I would not view the distal rectum yet with the inflamed/enlarged bowel covering the pelvic opening. . The proximal sigmoid and descending colon appears soft, not involved with few diverticulosis visible. He has a bulky sigmoid colon mesentery and epiploic fat appendages at the sigmoid. The small bowel is all free and uninvolved. There is some reactive thickening of the peritoneum where the colon is adhered to. Visualized portions of the omentum appears uninvolved. Liver appears mildly enlarged but smooth in contour. There is no gross ascites. I began by releasing some of the lateral anterior abdominal wall adhesion of the sigmoid colon to allow for anterior retraction and to get around the adhered portion of the recum/sigmoid. I then approached the bulky area of the rectosigmoid and dissected this free from anterolateral abdominal wall and pelvis with blunt dissection as well as dissection including the peritoneum off the surrounding anterolateral abdominal wall to get into a plane that hopefully is not involved either with inflammation of the cancer. This process proved difficult. I contacted Dr. Adame (our Urologist) for intraoperative cystoscopy and ureteral stent placement to help avoid injury to the ureter as well as to determine whether the bladder is involved. While waiting I continued my lateral dissection of the descending colon to the splenic flexure. Once Dr. Adame arrived, he performed cystoscopy. There was no indication that the hardy of the bladder involved with inflammation/cancer. I asked him to inject ICG to the urethral orifices after intubating this with the Pollack catheter. Details of this will be dictated by Dr. Adame.After this, under firefly visualization, I was able to trace the path of the left ureter and slightly of the right ureter which was visible on white light. I then began a medial to lateral dissection at the sigmoid colon mesentery beginning at the promontory of the sacrum. Once this was done the sigmoid colon was retracted anteriorly tenting the mesentery. The sigmoid colon was lifted up towards the abdominal wall and the mesentery of the sigmoid colon stretched out to reveal the course of the inferior mesenteric artery/superior rectal artery. In a medial to lateral approach the peritoneum was opened up starting at the promontory of the sacrum extending it below the course of the inferior mesenteric artery. Blunt dissection was done performed bringing down the Toldts fascia from the sigmoid colon mesentery taking care to include the visualized nerves off the superior hypo gastric plexus. By switching to firefly mode, I was able to identify the course of the left ureter excluding this during dissection. I continued to visualize further the retro peritoneum and the ureter was identified and brought down away from the sigmoid colon mesentery. The course of the inferior mesenteric artery was then further developed proximally until its junction to the left colic artery was identified. Using the vessel sealer device, the inferior mesenteric artery was divided distal to its bifurcation to the left colic. After this the mesentery of the descending colon was swept and bluntly dissected away from the retro peritoneum in the medial to lateral fashion. As a lot of the small bowel remains on the way for further developing the medial side of the mesentery towards the splenic flexure, I then switched to a lateral to medial dissection starting at the sigmoid colon going up towards the splenic flexure connecting the previously done retroperitoneal dissection. I went up as I as I can which is just before it reaches the splenic flexure. The descending colon itself seems quite long tortuous that I felt I did not need to quarter pursue taking down the splenic flexure at the moment. After doing this I I returned to the bulky rectosigmoid portion and continued to the previously developed planes. Without the medial dissection was also able to get down further to the mid rectum which appears healthy in appearance and does not seem to be involved. I eventually was able to dislodge the rectosigmoid from its adhesion to the anterolateral wall and pelvis. The involved wall of the colon though appears to be fully perforated about a [address] with involvement of the full-thickness wall of the colon and possibly the pelvic wall with cancer. With this portion of the rectosigmoid free I then was able to get to the posterior plane from the colon to the sacrum to enter the pre-sacral plane and start the posterior dissection of the rectum. The rectum was tented upwards by my seo assistant. Under direct visualization the areolar plane between the enveloping fascia of the rectal mesentery was sharp then bluntly dissected from the presacral fashion starting posteriorly in developing at narrowly to the right and laterally to the left. The rectal mesentery was dissected to the distal rectum. I then started my lateral dissection on both sides and eventually anterior dissection to circumferentially come around up to the middle rectum. At this point, I then planned my proximal and distal margins. I chose the middle rectum which is more than 5 cm away from the bulky area. The mesentery was divided at this level with the vessel sealer. The rectum was divided with a 45 mm robotic stapler with a green load on 2 firings. Proximally I started at the level of the RIC division and proceeded to the junction of the descending and sigmoid colon. The mesentery was divided with a vessel sealer and again the colon was divided with a green load of the 45 mm stapler. I placed the divided rectum and sigmoid out of view and tested the length of the remaining descending colon. I continued the medial dissection of the descending colon mesentery as well as division of the gastrocolic ligament laterally and the lateral and posterior attachments of the splenic flexure to allow me to get the descending colon stump to the level of the rectal stump. I did not need to divide the IMV. At this point the staple line was opened up with the laparoscopic ben. My seo assistant introduced the anvil of the 28 mm stapler intra-abdominally and this was placed into the stump of the descending colon and secured with pursestring suture using 30V LOC which I ran twice to secure the anvil. Dr. De Leon came down transanally and introduced the handle of the stapler transanally and directed the spike anterior to our staple line. The spike and anvil was reassembled and then fired. The donuts were checked and both ends were noted to be adequate. We then tested our anastomosis with flexible sigmoidoscopy. Dr. De Leon performed flexible sigmoidoscopy and the anastomotic staple line was visualized with no active bleeding. This was also checked under firefly with ICG injection and I noted adequate perfusion. This was tested under water and no leakage was noted. At this point a further area irrigated the abdomen and the survey of the surgical field and suction of visible fluid collections. I scrubbed back in. The abdomen was deflated. I chose an area around his umbilicus where he has a fat- containing umbilical hernia forming extraction site. About a 4 cm vertical incision was created and we dissected the umbilical skin cleft of the fat- containing hernia and this was divided the fascia was opened up. A small Jose wound retractor was placed. The rectum and sigmoid no was divided was extracted. The wound retractor was removed. We changed gowns and gloves. The extraction wound was irrigated and we closed this with 1 Vicryl in a mattress fashion. The 12 mm right lower quadrant port was closed with 0 Vicryl anteriorly in a mattress fashion. The rest of the ports were removed and the other port sites w ere closed with 4-0 Monocryl to particular depression. Dermabond dressings were placed on the port sites. There was some persistent mild oozing on the right upper quadrant 5 liver port site and this was closed with a mattress suture of 3-0 nylon. A small gauze dressing covered with Tegaderm and then placed. The patient was awakened, extubated and brought to recovery room in a stable condition. AUGUSTO MADDEN MD Feb 04, 2020 12:27
--- NOTE | 2020-02-05 05:20 | DS.PDOC ---
Discharge Summary General Date of Admission Dec 12, 2019 at 06:14 Date of Discharge December 16, 2019 Attending Physician: JUAN MO MD Discharge Summary PROCEDURES PERFORMED DURING STAY: None. ADMITTING DIAGNOSES: 1. rectosigmoid colon cancer. DISCHARGE DIAGNOSES: 1. rectosigmoid colon cancer. COMPLICATIONS/CHIEF COMPLAINT: Rectosigmoid Colon Cancer. HISTORY OF PRESENT ILLNESS: Patient was admitted following a robotic-assisted anterior resection for a previously diagnosed rectosigmoid adenocarcinoma for which he presented with changes in bowel habits, weight loss, occasional bleeding. Metastatic workup is negative for distal metastasis. HOSPITAL COURSE: Patient underwent robotic-assisted low anterior resection as scheduled. Intraoperatively he was found to have full thickness perforation from the malignancy which is adhered to the pelvic sidewall. He did well perioperatively and was placed on clear liquids the first day. I kept him on antibiotics because of the recognized perforation. He did have episodes of low-grade fever the first couple of days. Overall he did well postoperatively. He was advanced to full liquids the following day and then soft diet the next day area it seems he was having some ileus or slow progression of his bowel function but eventually had a bowel movement in about postop day 2. On day of discharge she was tolerating a low-residue diet, denies any severe discomfort and has been afebrile more than 24 hours. He was discharged home on by mouth antibiotics. Pathology was not available yet on day of discharge.. DISCHARGE MEDICATIONS: Please see below. ALLERGIES: Please see below. PHYSICAL EXAMINATION ON DISCHARGE: VITAL SIGNS: Please see below. GENERAL: Comfortable HEENT: Normocephalic, atraumatic, lips and mucosa moist NECK: Supple, no jugular venous distention CARDIOVASCULAR EXAMINATION: Regular heart rate and rhythm without murmurs RESPIRATORY EXAMINATION: Unlabored respiratory effort, clear respirations bilaterally ABDOMINAL EXAMINATION: Soft, minimally distended. Port site incisions including extraction site are clean dry and intact with no drainage or erythema. Drain site without any drainage. Drain was removed at a prior. Nontender on palpation EXTREMITIES: No significant extremity edema SKIN: No extremity rashes NEUROLOGICAL EXAMINATION: Awake, alert and oriented LABORATORY DATA: Please see below. IMAGING: none PROGNOSIS: fair ACTIVITY: light activity x 2 weeks, advance gradually as tolerated. DIET: low residue diet until reevaluated DISCHARGE PLAN: d/c home on antibiotics x 7 days DISPOSITION: 01 Home, Self-Care. DISCHARGE INSTRUCTIONS: 1. as above 2. follow up in 2 weeks 3. follow up with oncology will be arranged. ITEMS TO FOLLOWUP ON ON OUTPATIENT: 1. final pathology results. DISCHARGE CONDITION: Stable. TIME SPENT ON DISCHARGE: Greater than 30 minutes. Discharge Medications Scheduled Levothyroxine Sodium (Synthroid) 75 Mcg Tablet, 75 MCG PO DAILY, (Reported) Lisinopril (Lisinopril) 40 Mg Tablet, 40 MG PO BID, (Reported) Metoprolol Tartrate (Metoprolol Tartrate) 25 Mg Tablet, 25 MG PO BID, (Reported) Ondansetron HCl (Zofran) 8 Mg Tablet, 1 TAB PO TID for nausea/vomiting Prochlorperazine Maleate (Prochlorperazine Maleate) 10 Mg Tablet, 10 MG PO Q6H for nausea Simvastatin (Simvastatin) 40 Mg Tab, 40 MG PO QHS, (Reported) Scheduled PRN Alprazolam (Alprazolam) 0.5 Mg Tablet, 0.5 MG PO QHS PRN for SLEEP, (Reported) Chlorthalidone (Chlorthalidone) 25 Mg Tablet, 12.5 MG PO DAILY PRN for HIGH BLOD PRESSURE, (Reported) Nitroglycerin (Nitroglycerin) 0.4 Mg Tab.subl, 0.4 MG SL NITRO PRN for CHEST PAIN, (Reported) Allergies Coded Allergies: No Known Allergies (Unverified , 11/21/19) JUAN MO MD Feb 04, 2020 13:09
--- NOTE | 2020-03-31 11:02 | RO ---
DATE OF OPERATION: 12/12/2019 PREOPERATIVE DIAGNOSIS: Rectosigmoid colon cancer. POSTOPERATIVE DIAGNOSIS: Rectosigmoid colon cancer. PROCEDURE: Cystoscopy; left ureteral stent placement. SURGEON: Pradeep Adame MD BILINGUAL TRAINER: None. ANESTHESIA: General. OPERATIVE INDICATIONS: This is a 69-year-old male who was brought to the operating room by Dr. Madden for surgery for rectosigmoid colon cancer. Dr. Madden requested that I come and place a left ureteral stent intraoperatively. DESCRIPTION OF PROCEDURE: By the time I came in the patient was already prepped and draped in the dorsal lithotomy position. He had received prophylactic antibiotics. At this point a rigid cystoscope was inserted into the urethral meatus and advanced into the bladder. A 5-Syrian open-ended ureteral catheter was then advanced up the left ureter and into the collecting system. This open- ended ureteral catheter was then utilized to inject indocyanine green dye up into the left collecting system. Once this was done the cystoscope was removed and Conroy catheter was inserted into the bladder. The balloon was filled with 10 mL of sterile water. The open-ended ureteral catheter was then secured to the catheter using #0 Vicryl tie. The catheter was connected to gravity drainage. The open-ended ureteral catheter was capped off. At this point this marked the conclusion of my portion of the procedure and the procedure was turned back over to Dr. Madden. ESTIMATED BLOOD LOSS: 5 mL. COMPLICATIONS: None. SPECIMEN: None. PLAN: Dr. Madden will perform the surgery and then the 5-Syrian open-ended ureteral catheter will be removed either immediately postoperatively or on postoperative day 1. [facility]
== END 2019-12-16 11:35 | disposition home or self-care (01) | DRG 332 ==
LOC: M OR 06:14
PROVIDERS: ADMIT Surgery; ATTEND Surgery
PROC: 8E0W4CZ Robotic Assisted Procedure of Trunk Region, Percutaneous Endoscopic Approach (ICD-10-PCS; 2019-12-12)
PROC: 3E0K8GC Introduction of Other Therapeutic Substance into Genitourinary Tract, Via Natural or Artificial Opening Endoscopic (ICD-10-PCS; 2019-12-12)
PROC: 0DBP4ZZ Excision of Rectum, Percutaneous Endoscopic Approach (ICD-10-PCS; principal; 2019-12-12 07:30)
DX: C19 Malignant neoplasm of rectosigmoid junction (principal); K63.1 Perforation of intestine (nontraumatic); R91.1 Solitary pulmonary nodule; K42.9 Umbilical hernia without obstruction or gangrene; I10 Essential (primary) hypertension; E11.9 Type 2 diabetes mellitus without complications; E78.00 Pure hypercholesterolemia, unspecified; E66.9 Obesity, unspecified; I25.10 Atherosclerotic heart disease of native coronary artery without angina pectoris; Z87.891 Personal history of nicotine dependence; Z79.82 Long term (current) use of aspirin; Z79.899 Other long term (current) drug therapy; Z68.32 Body mass index [BMI] 32.0-32.9, adult

== ENCOUNTER → 2020-01-08 | Outpatient (CLI) | payer MEDICARE, BC ==
[~2020-01-08] MED LIST changes: -ALVIMOPAN 12 MG CAPSULE (ENTEREG) PO ONE; -HEPARIN SOD (PORCINE) 5000UNITS/ML 1ML VIAL/SYRINGE SQ ONE; +LIDOCAINE 1% MDV 20ML VIAL As Ordered ONE; -LIDOCAINE 1% MDV 20ML VIAL SQ PRN; -LR 1,000 ML IV ONE; +MIDAZOLAM INJ 2MG/2ML VIAL (J2250 PER 1MG) As Ordered ONE; +PROC10TA4 PO; +ZOFR8TAB24 PO; -cefoTEtan DISODIUM 2 GM in D5W MINI-BAG PLUS 50 ML IV ONE; +diphenhydrAMINE 50MG/ML VIAL (J1200) As Ordered ONE; +fentaNYL 100 MCG/2 ML INJECTION (J3010) As Ordered ONE; -metroNIDAZOLE 500 MG in IV 1 EA IV ONE
[2020-01-08 15:26] VITALS: BP 164/80
--- NOTE | 2020-01-24 11:42 | POST-OPPD ---
Postoperative Procedure Note Date Of Procedure: Jan 08, 2020 Time Of Procedure: 14:07 IR Ultrasound and fluoroscopy-guided port placement. IR Ultrasound of the neck. IR Moderate sedation. Clinical information: Colon cancer. Physician: Dr. Lane. Procedure: The patient was advised of the benefits, risks, and alternatives of the procedure and informed consent was obtained. A time-out was performed with verification of the patient's name, MRN, site of procedure and type of procedure to be performed. The patient was positioned in the supine position on the angiographic table. The site was prepped and draped in the usual sterile fashion. Moderate sedation was performed by the physician including the presence of an independent trained observer who assisted and monitored the patient's level of consciousness and physiologic status. Following the administration of fentanyl and Versed , the physician spent 45 minutes of continuous face to face time with the patient. Ultrasound of the neck reveals a patent and compressible right internal jugular vein. A professional sports scout radiograph reveals cardiac device in place. The neck and anterior chest wall were anesthetized with lidocaine. The right internal jugular vein was accessed using a microintroducer needle under ultrasound guidance, via a lateral approach. An 018 wire was advanced into the superior vena cava, the needle was removed and a microsheath was placed. An Amplatz wire was then passed into the inferior vena cava. An incision at the internal jugular vein access site and anterior chest wall were made using a scalpel. An incision was made at the anterior chest wall. A small pocket was created using a combination of blunt and sharp dissection. A tunneling device was then used to pass the catheter from the pocket to the neck puncture site. An 8- [employer] Angio [employer] Smart power port was then positioned in the pocket. The catheter was then measured and cut. The introducer sheath was exchanged for a peel-away sheath. The catheter was passed through the peel-away sheath into the internal jugular vein and the peel-away sheath was removed. The port tip was positioned at the cavoatrial junction. The port was then accessed with a Barnett needle. The port flushes and aspirates well. The puncture site in the neck was closed. The chest wall incision was then closed with 2-0 Vicryl and 4-0 Monocryl. Glue and Steri- Strips were applied. A sterile dressing was then applied. The patient tolerated the procedure well and was returned to the PRU in stable condition. Estimated blood loss: <5 ml. Complications: None. Conclusion: 1. Successful placement of an 8-[place] Angio dynamics Smart power port via the right internal jugular vein. The port is ready for immediate use. 2. Patient to follow up in IR clinic in 2 weeks. Thank you for this referral. HAMLET LANE MD Jan 24, 2020 11:42
== END ==
LOC: M IRPRO 11:43
PROVIDERS: ATTEND Internal Medicine Hematology & Oncology
DX: C19 Malignant neoplasm of rectosigmoid junction (principal)
CPT/HCPCS: 36561; 99152; 99153; C1769; C1788; C1894; J1200; J1642; J1644; J2250; J3010

== ENCOUNTER → 2020-01-14 | Outpatient (CLI) | payer BC ==
[~2020-01-14] MED LIST changes: -LIDOCAINE 1% MDV 20ML VIAL As Ordered ONE; -MIDAZOLAM INJ 2MG/2ML VIAL (J2250 PER 1MG) As Ordered ONE; -diphenhydrAMINE 50MG/ML VIAL (J1200) As Ordered ONE; -fentaNYL 100 MCG/2 ML INJECTION (J3010) As Ordered ONE
--- NOTE | 2020-01-27 13:36 | REP ---
PET CT HISTORY: Rectosigmoid cancer status post colon resection. Biopsy-proven metastasis to the lung. COMPARISON: CT study of the chest 11/21/2019. CT abdomen and pelvis 11/12/2019. TECHNIQUE: 64 minutes following the intravenous injection of an 8.72 mCi dose of F18 FDG, PET CT was acquired in the usual fashion from the skull base to the proximal thighs. PET CT FINDINGS: The known left lower lobe lung nodule is hypermetabolic, maximum standard uptake value 6.53. There is hypermetabolic john uptake in the left hilus with maximum standard uptake value here 8.40. There is a small normal size john focus of hypermetabolic uptake maximum standard uptake value 4.14 in the left subcarinal region. No other intrathoracic hypermetabolic uptake is seen. Head and neck soft tissues are unremarkable. In the abdomen and pelvis, there is mildly increased uptake in the periumbilical region of the anterior abdominal wall, which may be postoperative uptake. There are two irregular large areas of hypermetabolic uptake in the pelvis, one along the left side of the colonic anastomosis in the rectosigmoid region where maximum standard uptake value is 11.72. Superior to this, there is a collection of hypermetabolic uptake 16.58 maximum standard uptake value. In this area, there is evidence of diverticulosis and some intramural gas suggesting diverticulitis. Anterior to this, there is hypermetabolic focus at some adjacent bowel loops in the central pelvis where maximum SUV value is 13.86. No retroperitoneal john hypermetabolic uptake is seen. No intrahepatic hypermetabolic is observed. Lastly, there is mildly hypermetabolic uptake in a diverticulum in the distal transverse colon, maximum SUV value 5.53. This may be inflammatory as well. IMPRESSION: There is evidence of hypermetabolic left lower lobe pulmonary metastatic disease, hilar john hypermetabolic uptake, and subcarinal john hypermetabolic uptake is seen in the chest. There are several foci of abnormal hypermetabolic uptake in the pelvis adjacent to the colonic anastomosis and above it adjacent to sigmoid diverticulosis. Possibly related to diverticulitis at this latter side. MTDD
== END ==
LOC: M PLARAD 08:00
PROVIDERS: ATTEND Internal Medicine Hematology & Oncology
DX: C19 Malignant neoplasm of rectosigmoid junction (principal)
CPT/HCPCS: 78815; A9552

== ENCOUNTER → 2020-02-11 | Outpatient (POV) | payer BC ==
--- NOTE | 2020-02-12 11:40 | IRPN ---
[facility] IR Progress Note IR Progress Note DATE: Feb 11, 2020 Patient agreed to this telephone follow-up. Duration of call 5 minutes. FOLLOW-UP: Status post port placement. Patient states Port is working well. Patient denies fevers, chills, pain or discharge. Last chemotherapy session complete per patient. Patient will require monthly flushes in infusion. ON EXAMINATION: Patient sent pictures of the port site. Port site appears to be healing well. No redness, swelling or discharge. IMPRESSION: Will require monthly port flushes. Otherwise no further follow-up scheduled unless initiated by patient and/or referring provider. Referral to infusion for monthly flushes is made. Thank you for this referral Allergies Coded Allergies: No Known Allergies (Unverified , 11/21/19) HAMLET SMITH MD Feb 12, 2020 11:40
== END ==
LOC: M TMIRPOV 07:55
PROVIDERS: ATTEND Radiology Diagnostic Radiology
DX: Z45.2 Encounter for adjustment and management of vascular access device (principal)

== ENCOUNTER 2020-04-27 13:52 | Outpatient (CLI) | payer BC ==
[~2020-04-27] VITALS: Ht 172.7 cm; Wt 100.1 kg
[~2020-04-27 13:52] MED LIST changes: -LISI40TA PO; +LISI40TA4 PO; +SODIUM CHLORIDE 0.9% INJ 10 ML SYR IV SCH
[2020-04-27 14:15] VITALS: BP 162/82
== END 2020-04-27 14:15 | disposition home or self-care (01) ==
LOC: M INFU 13:52
PROVIDERS: ATTEND Radiology Diagnostic Radiology
DX: C19 Malignant neoplasm of rectosigmoid junction (principal); C78.00 Secondary malignant neoplasm of unspecified lung
CPT/HCPCS: 96523; J1642

== ENCOUNTER 2020-05-25 13:14 | Outpatient (CLI) | payer BC ==
[~2020-05-25] VITALS: Ht 172.7 cm; Wt 100.1 kg
[2020-05-25 13:36] VITALS: BP 140/78
== END 2020-05-25 13:40 | disposition home or self-care (01) ==
LOC: M INFU 13:14
PROVIDERS: ATTEND Radiology Diagnostic Radiology
DX: C19 Malignant neoplasm of rectosigmoid junction (principal); C78.00 Secondary malignant neoplasm of unspecified lung
CPT/HCPCS: 96523; J1642

== ENCOUNTER → 2020-06-05 | Outpatient (CLI) | payer BC ==
[~2020-06-05] MED LIST changes: -SODIUM CHLORIDE 0.9% INJ 10 ML SYR IV SCH
[2020-06-05 16:00] LABS: BASO % 0.4 % (0.0-1.0); EOS # 0.4 10^3/uL (0.0-0.5); EOS % 3.8 % (0.0-3.0); HEMATOCRIT 44.8 % (42.0-52.0); HEMOGLOBIN 14.5 g/dl (13.5-17.5); LYMPH # 1.9 10^3/uL (1.5-5.0); MEAN CORPUSCULAR HEMOGLOBIN 29.2 pg (27.0-33.0); MEAN CORPUSCULAR HGB CONC 32.4 g/dl (32.0-36.5); MEAN CORPUSCULAR VOLUME 90.1 fl (80.0-96.0); MONO # 0.8 10^3/uL (0.0-0.8); MONO % 8.4 % (0.0-5.0); NEUTROPHILS # 6.5 10^3/uL (1.5-8.5); NEUTROPHILS % 67.1 % (36.0-66.0); PLATELET COUNT, AUTOMATED 125 10^3/uL (150-450); RED BLOOD COUNT 4.97 10^6/uL (4.30-6.10); WHITE BLOOD COUNT 9.7 10^3/uL (4.0-10.0)
[2020-06-05 16:17] LABS: INR 0.99; PROTHROMBIN TIME 13.3 SECONDS (12.5-14.3)
[2020-06-05 16:35] LABS: ALBUMIN 4.1 GM/DL (3.2-5.2); ALT/SGPT 27 U/L (12-78); BILIRUBIN,TOTAL 0.6 MG/DL (0.2-1.0); BLOOD UREA NITROGEN 16 MG/DL (7-18); CALCIUM LEVEL 9.7 MG/DL (8.8-10.2); CARBON DIOXIDE LEVEL 27 MEQ/L (21-32); CHLORIDE LEVEL 103 MEQ/L (98-107); CREATININE FOR GFR 0.98 MG/DL (0.70-1.30); GLOMERULAR FILTRATION RATE > 60.0 (>42); GLUCOSE, FASTING 109 MG/DL (70-100); POTASSIUM SERUM 4.3 MEQ/L (3.5-5.1); SODIUM LEVEL 138 MEQ/L (136-145); TOTAL PROTEIN 7.4 GM/DL (6.4-8.2)
== END ==
LOC: M ADAMS 14:40
PROVIDERS: ATTEND Physician Assistant
DX: C18.6 Malignant neoplasm of descending colon (principal)

== ENCOUNTER → 2020-06-11 | Outpatient (CLI) | payer BC ==
[~2020-06-11] MED LIST changes: +GASTROGRAFIN SOLUTION 30ML (Q9963) As Ordered ONE; +ISOVUE-370 76% 100ML VIAL As Ordered ONE
--- NOTE | 2020-06-12 06:48 | REP ---
INDICATION: MAL MOUNA OF COLON. COMPARISON: 11/12/2019 TECHNIQUE: Axial contrast-enhanced images from the lung bases to the pubic symphysis using 100 cc Isovue 370 intravenous contrast material. Delayed images of the abdomen along with coronal and sagittal reformations.. This CT examination was performed using the following dose reduction techniques: Automated exposure control, adjustment of mA and/or kv according to the patient's size, and the use of iterative reconstruction technique. FINDINGS: 1.6 cm spiculated lesion in the left lower lobe again identified and essentially unchanged. Minimal posterior basilar dependent changes are also noted. Liver demonstrates fatty infiltration without focal hepatic lesion. Spleen, pancreas, bilateral adrenal glands and kidneys are normal. Incidental stable calcified 1.5 cm splenic artery aneurysm noted at the tail of the pancreas. Cholelithiasis noted without acute cholecystitis. There is a 4.5 cm ill-defined lesion along the distal sigmoid colon adjacent to the prior area of anastomosis which contains central necrosis/fluid and suspected adjacent new surgical clips (series 201 images [id number]) which also extends inferiorly and is inseparable from the superior bladder wall. Differential diagnosis includes abscess related to prior diverticulitis as well as focal recurrence malignancy. Diffuse diverticulosis noted throughout the colon. No bowel obstruction. Normal terminal ileum and appendix identified in the right lower quadrant. No further enteric abnormalities are identified. Pelvis demonstrates prostatomegaly with mass effect on the base of the bladder as well as mass effect along the superior margin of the bladder from the above-mentioned possible abscess versus malignant focus of the sigmoid colon. No ascites. No free air. No significant intraperitoneal or retroperitoneal adenopathy. Abdominal aorta and vasculature appear normal. Musculoskeletal structures are intact and without acute osseous abnormality. IMPRESSION: 1. Relatively stable suspected metastatic focus in the left lung base. 2. 4.5 cm lesion inseparable from the distal sigmoid colon as described above. Differential diagnosis includes abscess related to prior diverticulitis as well as recurrent malignant focus. The lesion is inseparable from the superior margin of the bladder and warrants further investigation. 3. Diffuse colonic diverticulosis. 4. Prostatomegaly. 5. Cholelithiasis. <Electronically signed by Joe Muñiz > 06/12/20 0650
== END ==
LOC: M RAD 14:58
PROVIDERS: ATTEND Physician Assistant
DX: C18.6 Malignant neoplasm of descending colon (principal); K80.20 Calculus of gallbladder without cholecystitis without obstruction; N40.0 Benign prostatic hyperplasia without lower urinary tract symptoms; R91.8 Other nonspecific abnormal finding of lung field
CPT/HCPCS: 74177; Q9963; Q9967

== ENCOUNTER 2020-06-22 13:22 | Outpatient (CLI) | payer BC ==
[~2020-06-22] VITALS: Ht 172.7 cm; Wt 100.1 kg
[~2020-06-22 13:22] MED LIST changes: -GASTROGRAFIN SOLUTION 30ML (Q9963) As Ordered ONE; -ISOVUE-370 76% 100ML VIAL As Ordered ONE; +SODIUM CHLORIDE 0.9% INJ 10 ML SYR IV SCH
[2020-06-22 13:40] VITALS: BP 163/84
== END 2020-06-22 13:40 | disposition home or self-care (01) ==
LOC: M INFU 13:22
PROVIDERS: ATTEND Radiology Diagnostic Radiology
DX: C19 Malignant neoplasm of rectosigmoid junction (principal); C78.00 Secondary malignant neoplasm of unspecified lung
CPT/HCPCS: 96523; J1642